=== PATIENT | female | born 1950 | race Caucasian/White ===

== ENCOUNTER → 2016-10-29 | Outpatient (CLI) | payer OTHER ==
[~2016-10-29] MED LIST: ASPIRIN 81MG TA81 MG PO; HYDROCHLOROTHIA25 M1 PO; HYDROCODONE-APA1 TA1 PO; IBUPROFEN200 MG PO; LEVAQUIN750 MG PO; LOTREL 10 MG-201 CAP PO; METOPROLOL25 MG PO; TYLENOL ES500 MG PO
[2016-10-29 17:15] LABS: BUN 16 mg/dL (7-18)
[2016-10-29 17:17] LABS: GFR (ESTIMATED) 84 ML/MIN (59-)
[2016-10-29 17:42] LABS: HEMOGLOBIN 11.5 g/dL (12.2-16.2); LYMPH % 36.1 % (10-50.0)
== END ==
LOC: LAB 15:06
PROVIDERS: Nurse Practitioner
DX: C18.9 Malignant neoplasm of colon, unspecified (principal); Z51.81 Encounter for therapeutic drug level monitoring

== ENCOUNTER → 2017-04-22 | Outpatient (CLI) | payer MEDICARE, OTHER ==
[2017-04-22 09:07] LABS: LYMPH # 2.5 K/mm3 (0.7-4.5); LYMPH % 29.2 % (10-50.0)
[2017-04-22 09:19] LABS: BUN 18 mg/dL (7-18)
[2017-04-22 09:20] LABS: GFR (ESTIMATED) 63 ML/MIN (59-)
[2017-04-22 09:25] LABS: HEMOGLOBIN 14.2 g/dL (12.2-16.2)
--- NOTE | 2017-04-23 09:30 | RADIOLOGY REPORT PS360 ---
CT CHEST W/ CONTRAST INDICATION: Follow-up cancer of the colon, follow-up pulmonary nodules STAGE III COLON CA ORDERING PHYSICIAN: Rodriguez Reyes MD PATIENT AGE: 66 years COMPARISON: To 117 TECHNIQUE: Axial images are obtained following the intravenous administration of 75 mL's of Isovue-370 contrast. Sagittal and coronal reformatted images are reviewed as well. FINDINGS: No mediastinal or hilar mass or adenopathy. Coronary artery calcifications. Normal heart size. No pericardial effusion apparent. There are bilateral noncalcified pulmonary nodules once again noted. The largest nodule is in the left CPA angle measuring 8 mm. The nodules are unchanged. No new nodules are evident. Calcified granuloma is present in the right upper lobe. No effusions or infiltrates. Small cystic areas present in the left upper lobe at 8 mm unchanged. There are degenerative changes in the thoracic spine. No destructive lesions evident. IMPRESSION: 1. Stable CT appearance of the chest. Bilateral noncalcified pulmonary nodules are unchanged. No new nodules evident. No adenopathy 2. Coronary artery disease
--- NOTE | 2017-04-23 09:37 | RADIOLOGY REPORT PS360 ---
CT ABD PELVIS W/ CONTRAST CLINICAL INDICATION: STAGE III COLON CA ORDERING PHYSICIAN: Rodriguez Reyes MD PATIENT AGE: 66 years COMPARISON: None TECHNIQUE: Axial images obtained with sagittal and coronal reformats. PROCEDURE: Oral Contrast: Redicat IV Contrast: 75 mg Isovue-370 performed in conjunction with the chest CT. FINDINGS: There is diffuse hepatic steatosis. No focal liver lesion is evident. Spleen, adrenal glands, pancreas, and gallbladder have an unremarkable appearance. No hydronephrosis or renal mass or obstructing ureteral calculus. There are few small lymph nodes in the mesentery's and retroperitoneum which are not significantly changed. No mesenteric mass or abnormal fluid collection is evident. No obvious pelvic adenopathy. The colonic anastomosis is patent in the rectosigmoid area. Postsurgical changes are present involving the anterior abdominal wall. No evidence of aortic aneurysm. No acute bony anomalies. There is mild wedging of L1. This however is stable. IMPRESSION: Stable CT appearance of the abdomen and pelvis with no convincing evidence of metastatic disease Postsurgical changes of the rectosigmoid area
== END ==
LOC: RAD 08:50
PROVIDERS: Internal Medicine
DX: C18.9 Malignant neoplasm of colon, unspecified (principal); Z03.89 Encounter for observation for other suspected diseases and conditions ruled out
CPT/HCPCS: Q9967

== ENCOUNTER → 2017-07-25 | Outpatient (CLI) | payer MEDICARE, OTHER ==
[~2017-07-25] MED LIST changes: +LISINOPRIL HCTZ1 TAB PO
[2017-07-25 08:39] LABS: HEMOGLOBIN 14.2 g/dL (12.2-16.2); LYMPH # 2.5 K/mm3 (0.7-4.5); LYMPH % 21.8 % (10-50.0)
[2017-07-25 09:22] LABS: BUN 22 mg/dL (7-18)
[2017-07-25 09:26] LABS: GFR (ESTIMATED) 50 ML/MIN (59-)
--- NOTE | 2017-07-30 10:00 | RADIOLOGY REPORT PS360 ---
CT CHEST W/ CONTRAST Ordering Physician: Rodriguez Reyes MD Patient Age: 66 years: Female HISTORY: COLON CANCER stage III colon cancer on chemotherapy COMPARISON :April 2017 CT chest & September [address] however this is a small fissure TECHNIQUE: Axial images are obtained following the intravenous administration of 75 mL's of Isovue-370 contrast. Sagittal and coronal reformatted images performed on CT workstation .. Note apparently the studies were not sent to PACS originally and there were difficulties in files chest versus abdomen FINDINGS: No mediastinal or hilar mass or adenopathy. Coronary artery calcifications. Normal heart size. No pericardial effusion apparent. There are bilateral noncalcified pulmonary nodules once again noted. Left lower lobe: The largestnodule is in the left CPA angle measuring 8 mm. Appears stable . Left lower lobe: 3 tiny nodule axial image 225 & coronal slice 45 appears stable measuring less than 4 mm. Nodule periphery right lung axial image 153, resides along the minor fissure measured larger at 5.1 mm. Previously 4.3. On sagittal image appears to be similar to perhaps only questionably minimally larger than September 2016. New significant new nodules are evident. Calcified granuloma is present in the right upper lobe. No effusions or infiltrates. A few tiny scattered blebs most evident towards the left lower lung pinto both LLL and lingula. Hypertrophic rib dense. No mediastinal nor hilar adenopathy. Calcified aorta. Diffuse calcified prominent. Coronary artery calcification. \ There are degenerative changes in the thoracic spine. No destructive lesions evident. IMPRESSION: 1. Bilateral noncalcified pulmonary nodules left lung nodules have not changed appreciably. . Small elongated fissure nodule right lung fissural nodule is very slightly more generous measuring up to 5.1 mm.. Fissure nodules/nodes are typically of less concern but warrant ongoing close follow-up 2. Prominent calcified Coronary artery disease 3. Mild emphysematous Chronic lung changes
--- NOTE | 2017-07-30 10:14 | RADIOLOGY REPORT PS360 ---
CT ABD PELVIS W/ CONTRAST Ordering Physician: Rodriguez Reyes MD Patient Age: 66 years: Female HISTORY: COLON CANCER TECHNIQUE: Helical CT scanning performed the abdomen and pelvis. 75 cc Isovue-370 along with oral contrast utilized COMPARISON :CT abdomen pelvis 04/22/2017 FINDINGS Lungs. Discussed in separate CT chest report. Stable noncalcified nodular density towards right CP angle again noted. Minor peripheral pleural/parenchymal scarring likely accounts for stable linear area of density for the area of density at medial aspect RLL leading to the margin of the anterior mediastinal Abdomen: Liver. Diffuse pronounced Hepatic steatosis with areas of sparing. No focal liver lesion is evident. Spleen,adrenal glands, pancreas, and gallbladder have an unremarkable appearance. Kidneys Nohydronephrosis or renal mass or obstructing ureteral calculus. There are few small lymph nodes in the mesentery's and retroperitoneum which are not significantly changed. No mesenteric mass or abnormal fluid collection is evident. No obvious pelvic adenopathy or mass. . Uterus normal in size with moderate endometrial stripe for age. Urinary bladder: diffuse wall thickening requires correlation. This may be accentuated by the lack of distention that is still quite pronounced given such. Recommend checking urinalysis. The colonic anastomosis is patent in therectosigmoid area. Postsurgical changes are present involving the anteriorabdominal wall. Appendix identified and normal. No bowel dilatation or obstruction. Note tiny fat-containing ventral hernia just to the right of midline & just superior to the umbilicus. This is slightly more evident today. Abdominal wall defect 11 mm transverse and slightly greater height. It contains only minimal fat no bowel loops. Inferior to umbilicus there is diastases of deep to the midline incision of with likely small fat-containing incisional hernia here., Sagittal image [id number], axial 317 . Osseous structures appear intact demineralization but no focal lesions. There Minor Wedging of L1 again noted and is stable. Calcified aorta and iliacs No evidence of aortic aneurysm. No acute bony anomalies. IMPRESSION: 1. Diffuse wall thickening of urinary bladder in part accentuated its contracted state but warrants correlation with urinalysis. Possible cystitis 2. Small fat-containing ventral hernias above the umbilicus incidentally noted . 3. Otherwise significant change since 04/22/2017 & September [address] abdomen pelvis. . 4. no good evidence of evidence of metastatic disease 5. Postsurgical changes of the rectosigmoid area 6. Prominent Hepatic steatosis again observed
== END ==
LOC: RAD 08:15
PROVIDERS: Internal Medicine
DX: C18.9 Malignant neoplasm of colon, unspecified (principal)
CPT/HCPCS: Q9967